=== PATIENT | male | born 1985 | race Caucasian/White ===

== ENCOUNTER 2019-05-27 09:39 | Emergency (ER) | payer MEDICAID ==
[~2019-05-27] VITALS: Ht 182.9 cm; Wt 88.6 kg
[~2019-05-27 09:39] MED LIST: CEPH-443 PO; IBUP-1542 PO; SULF1TAB31 PO
[2019-05-27 09:42] VITALS: BP 133/93; PULSE 89; RESP 20; Ht 182.9 cm; Wt 88.6 kg
[2019-05-27] MEDS ORDERED: LIDOCAINE 1% (MPF) 5 ML VIAL INFIL ONE (10:30)
== END 2019-05-27 11:25 | disposition home or self-care (01) ==
LOC: FTE 09:39
DX: L03.113 Cellulitis of right upper limb (principal)
CPT/HCPCS: 10060; Z7502; Z7610

== ENCOUNTER 2019-05-29 15:31 | Emergency (ER) | payer MEDICAID ==
[~2019-05-29] VITALS: Ht 182.9 cm; Wt 86.1 kg
[2019-05-29 15:35] VITALS: BP 151/72; PULSE 83; RESP 18; Ht 182.9 cm; Wt 86.1 kg
[2019-05-29] MEDS ORDERED: CLINDAMYCIN 300 MG INJ IM ONE (18:00)
[2019-05-29] MEDS ORDERED: IBUPROFEN 800 MG TAB PO ONE (18:00)
== END 2019-05-29 18:44 | disposition home or self-care (01) ==
LOC: FTE 15:31
DX: L03.011 Cellulitis of right finger (principal); F17.210 Nicotine dependence, cigarettes, uncomplicated
CPT/HCPCS: 73140; 96372; Z7502; Z7610